=== PATIENT | female | born 1980 | race Two or more races ===

== ENCOUNTER 2019-05-23 14:45 | Emergency (ER) | payer MEDICAID ==
[~2019-05-23] VITALS: Ht 175.3 cm; Wt 99.8 kg
[2019-05-23] MEDS ORDERED: MORPHINE SULF INJ 2 MG/ML SYRINGE 1ML IV ONE ×2 (15:30→16:45)
[2019-05-23] MEDS ORDERED: ONDANSETRON HCL 4 MG/2 ML VIAL IV ONE (15:30)
[2019-05-23] MEDS ORDERED: MORPHINE SULFATE 4 MG/ML SYR/VIAL ONE (16:19)
[2019-05-23] MEDS ORDERED: NEOMYCIN-BACITRACIN-POLYM UNITDOSE PKG TOP OINT TOP ONE (16:27)
[2019-05-23] MEDS ORDERED: TETANUS-DIPTH-ACEL PERTUSSIS 0.5ML SYRG IM ONE (16:45)
[2019-05-23 17:24] VITALS: BP 118/57
[2019-05-23] MEDS ORDERED: IBUPROFEN 600 MG TAB PO ONE (17:30)
[2019-05-23] MEDS ORDERED: HYDROcodone-ACET 10/325MG TAB PO ONE (17:30)
== END 2019-05-23 17:44 | disposition home or self-care (01) ==
LOC: EDBD 14:45 → ER 14:55
DX: S82.842A Displaced bimalleolar fracture of left lower leg, initial encounter for closed fracture (principal); W01.0XXA Fall on same level from slipping, tripping and stumbling without subsequent striking against object, initial encounter; Y93.01 Activity, walking, marching and hiking; Y92.828 Other wilderness area as the place of occurrence of the external cause; Y99.8 Other external cause status
CPT/HCPCS: 29515; 73610; 90471; 90715; 96374; 96375; 99283; J2270; J2405

== ENCOUNTER 2019-05-28 17:30 | Emergency (ER) | payer MEDICAID ==
[~2019-05-28] VITALS: Ht 170.2 cm; Wt 104.3 kg
[2019-05-28] MEDS ORDERED: HYDROcodone-ACET 10/325MG TAB PO ONE (21:15)
[2019-05-28] MEDS ORDERED: KETOROLAC TROMETH 60MG/2ML VIAL IM ONE (21:15)
[2019-05-28] MEDS ORDERED: methylPREDNISolone SOD SUCC 125 MG/2 ML VL IM ONE (21:15)
[2019-05-28 21:34] VITALS: BP 117/60
== END 2019-05-28 22:17 | disposition home or self-care (01) ==
LOC: ER 17:30
DX: S82.302A Unspecified fracture of lower end of left tibia, initial encounter for closed fracture (principal); S82.62XA Displaced fracture of lateral malleolus of left fibula, initial encounter for closed fracture; S90.522A Blister (nonthermal), left ankle, initial encounter; Z90.49 Acquired absence of other specified parts of digestive tract; W18.39XA Other fall on same level, initial encounter; Y93.89 Activity, other specified; Y92.830 Public park as the place of occurrence of the external cause; Y99.8 Other external cause status
CPT/HCPCS: 29515; 96372; 99283; J1885; J2930

== ENCOUNTER 2019-06-22 07:29 | Emergency (ER) | payer MEDICAID ==
[~2019-06-22] VITALS: Ht 170.2 cm; Wt 104.3 kg
[2019-06-22 09:24] VITALS: BP 113/56
== END 2019-06-22 10:29 | disposition home or self-care (01) ==
LOC: ER 07:29
DX: M25.572 Pain in left ankle and joints of left foot (principal); Z90.49 Acquired absence of other specified parts of digestive tract; Z98.890 Other specified postprocedural states

== ENCOUNTER 2021-07-24 12:52 | Emergency (ER) | payer MEDICAID ==
[~2021-07-24] VITALS: Ht 170.2 cm; Wt 106.6 kg
[2021-07-24 17:32] VITALS: BP 148/85
== END 2021-07-24 17:47 | disposition home or self-care (01) ==
LOC: ER 12:52
DX: S93.402A Sprain of unspecified ligament of left ankle, initial encounter (principal); Z90.49 Acquired absence of other specified parts of digestive tract; X58.XXXA Exposure to other specified factors, initial encounter; Y93.01 Activity, walking, marching and hiking; Y92.89 Other specified places as the place of occurrence of the external cause; Y99.8 Other external cause status
CPT/HCPCS: 73610

== ENCOUNTER 2022-08-04 11:05 | Emergency (ER) | payer MEDICAID ==
[~2022-08-04] VITALS: Ht 175.3 cm; Wt 112.5 kg
[2022-08-04 11:40] VITALS: BP 139/92
[2022-08-04] MEDS ORDERED: PRED20TA2 PO (12:10)
[2022-08-04] MEDS ORDERED: ACET-1080 PO (12:10)
== END 2022-08-04 12:13 | disposition home or self-care (01) ==
LOC: ER 11:05
DX: M50.122 Cervical disc disorder at C5-C6 level with radiculopathy (principal); Z90.49 Acquired absence of other specified parts of digestive tract
CPT/HCPCS: 72040; 93005

== ENCOUNTER 2025-03-02 18:35 | Emergency (ER) | payer MEDICAID ==
[~2025-03-02] VITALS: Ht 170.2 cm; Wt 110.0 kg
[~2025-03-02 18:35] MED LIST: ACET-1080 PO; PRED20TA2 PO
[2025-03-02 18:39] VITALS: BP 125/89; RESP 20; TEMP 97.7; O2SAT 98
--- NOTE | 2025-03-02 18:41 | ECG ---
[facility] Test Date: 2025-03-02 Test Time: 18:40:39 Pat Name: JONAS KENDRICK Department: [facility] ED Patient ID: [facility]-[id number] Room: Gender: F [employer]: carine : 1980 Requested By: SHANTA CORNEJO Order Number: [id number] Reading MD: Frankie Fox Measurements Intervals [place] Rate: 70 P: 23 WI: 141 QRS: 28 QRSD: 101 T: 43 QT: 390 QTc: 421 Interpretive Statements Sinus rhythm Electronically Signed On 03-04-2025 17:50:52 PDT by Frankie Fox Please click the below link to view image of tracing.
[2025-03-02 19:02] LABS: Hematocrit 37.4 % (36.0-46.0); Hemoglobin 12.4 g/dL (12.2-16.2); Mean Corpuscular Hemoglobin 27.9 pg (28.0-32.0); Mean Corpuscular Volume 84.2 fL (80.0-100.0); Nucleated Red Blood Cells % 0.0 %
--- NOTE | 2025-03-02 19:19 | DVH ---
CHEST RADIOGRAPH Indication: chest pain Technique: Single frontal view of the chest was obtained COMPARISON: None FINDINGS: Lines and Tubes: None Lungs: Clear Pleura: No effusion. No pneumothorax. Cardiomediastinal contours: Unremarkable Bones: Unremarkable IMPRESSION: No acute disease.
[2025-03-02 19:22] LABS: Alanine Aminotransferase 26 U/L (7-40); Alkaline Phosphatase 57 U/L (46-116); Anion Gap 10 (5-15); BUN/Creatinine Ratio 18.1 (10.0-20.0); Blood Urea Nitrogen 13 mg/dL (9-23); Carbon Dioxide 29 mmol/L (20-31); Chloride 101 mmol/L (98-107); Potassium 3.9 mmol/L (3.5-5.1); Sodium 140 mmol/L (136-145); Total Protein 7.3 g/dL (5.7-8.2)
[2025-03-02 19:25] VITALS: PULSE 70
[2025-03-02 19:25] LABS: Albumin 4.8 g/dL (3.2-4.8); Bilirubin, Total 0.2 mg/dL (0.2-1.0); Calcium 10.6 mg/dL (8.7-10.4); Glucose 107 mg/dL (74-106)
--- NOTE | 2025-03-02 19:25 | ED.PDOC ---
History of Present Illness HPI Comments 44 y/o obese F presents with c/c nonradiating, sternal chest pain, with associated jaw pain, occasional shortness of breath at night, and nausea. Patient endorses on 5x day history of nausea and 2x day history of other aforementioned symptoms following their respective onsets. Pain is reported to have, suddenly, worsened, today, and is described to be heavy in quality and originates in her chest prior to, directly, radiating to her lower jaw. No endorsed recent life stressors, strenuous activities, lifestyle changes, or pertinent history endorsed, with exception of HLD and cholecystectomy. Denies any cough, congestion, fever, chills, vomiting, or further associated symptoms. States on consulting her PCP, recently, regarding symptoms and being dismissed of her concerns. Last stress test was stated to have been 2x years ago and benign then. Chief Complaint: Chest Pain Time Seen by MD: 18:40 Primary Care Provider: AREN Reviewed Notes: Nurses Notes, Medications, Allergies Allergies: Coded Allergies: NO KNOWN ALLERGIES (Unverified , 11/10/10) Home Meds Active Scripts Acetaminophen (Tylenol 8 Hour Arthritis) 650 Mg Tab, 650 MG PO TID, #30 TAB Prov:FADI ROY 08/04/22 Prednisone (Prednisone) 20 Mg Tab, 40 MG PO DAILY, #20 MG Prov:FADI ROY 08/04/22 Information Source: Patient Mode of Arrival: Ambulatory Severity: Moderate Timing: Days Duration: Since onset Prehospital treatment: None Past Medical History PAST MEDICAL HISTORY: High Lipids Surgical History: Cholecystectomy TECHNICAL SYSTEMS ARCHITECT History: No Pertinent TECHNICAL SYSTEMS ARCHITECT History Family History Family History: Reviewed,noncontributory to illness Social History Smoker: Non-Smoker Alcohol: Denies ETOH Use Drugs: Denies Drug Use Lives In: Home All Other Systems: Reviewed and Negative (Comprehensive systems review obtained and negative except for what is stated in the HPI.) Physical Exam General Appearance: No Apparent Distress, Obese HEENT: Normal ENT Inspection, Pharynx Normal, TMs Normal Neck: Full Range of Motion, Non-Tender, Normal, Normal Inspection Respiratory: Lungs Clear, No Accessory Muscle Use, No Respiratory Distress, Normal Breath Sounds Cardiovascular: No Edema, No JVD, No Murmur, No Gallop, Normal Peripheral Pulses, Regular Rate/Rhythm Breast Exam: Deferred Gastrointestinal: No Organomegaly, Non Tender, No Pulsatile Mass, Normal Bowel Sounds, Soft Genitalia: Deferred Pelvic: Deferred Rectal: Deferred Extremities: No calf tenderness, Normal capillary refill, Normal inspection, No rmal range of motion, Non-tender, No pedal edema Musculoskeletal : Location: Left Extremity Location: Chest (left peristernal chest wall ) Apperance: Normal, Tenderness (mild tenderness to left peristernal chest wall ) Neurologic: Alert, 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 Was a procedure done?: No EKG EKG : Pulse Rate (adult): 70 [place]: Normal Cardiac Rhythm: NSR Block: None Hypertrophy: None ST: Normal Differential Dx Considerations may include: RI, PE, ACS, URI, PNA, angina, anxiety, gastritis, among others X-Ray, Labs, Meds, VS Vital Signs Date Time Temp Pulse Resp B/P (MAP) Pulse Ox O2 Delivery O2 Flow Rate FiO2 03/02/25 19:25 70 03/02/25 18:40 70 03/02/25 18:39 97.7 70 20 125/89 (101) 98 97.7 Lab Test 03/02/25 19:46 03/02/25 18:46 Range/Units Troponin I High Sensitivity < 3 L < 3 L </=34 ng/L White Blood Count 11.4 H 4.4-10.8 10^3/uL Red Blood Count 4.44 4.0-5.20 10^6/uL Hemoglobin 12.4 12.2-16.2 g/dL Hematocrit 37.4 36.0-46.0 % Mean Corpuscular Volume 84.2 80.0-100.0 fL Mean Corpuscular Hemoglobin 27.9 L 28.0-32.0 pg Mean Corpuscular Hemoglobin Concent 33.2 32.0-36.0 g/dL Red Cell Distribution Width 15.0 H 11.8-14.3 % Platelet Count 244 140-450 10^3/uL Mean Platelet Volume 7.6 6.9-10.8 fL Neutrophils (%) (Auto) 65.9 37.0-80.0 % Lymphocytes (%) (Auto) 25.6 10.0-50.0 % Monocytes (%) (Auto) 7.8 0.0-12.0 % Eosinophils (%) (Auto) 0.4 0.0-7.0 % Basophils (%) (Auto) 0.3 0.0-2.0 % Neutrophils # (Auto) 7.5 1.6-8.6 10 ^3/uL Lymphocytes # (Auto) 2.9 0.4-5.4 10 ^3/uL Monocytes # (Auto) 0.9 0-1.3 10 ^3/uL Eosinophils # (Auto) 0 0-0.8 10 ^3/uL Basophils # (Auto) 0 0-0.2 10 ^3/uL Nucleated Red Blood Cells 0.0 % Sodium Level 140 136-145 mmol/L Potassium Level 3.9 3.5-5.1 mmol/L Chloride Level 101 98-107 mmol/L Carbon Dioxide Level 29 20-31 mmol/L Anion Gap 10 5-15 Blood Urea Nitrogen 13 9-23 mg/dL Creatinine 0.72 0.550-1.02 mg/dL Glomerular Filtration Rate Calc 106 >90 mL/min BUN/Creatinine Ratio 18.1 10.0-20.0 Serum Glucose 107 H 74-106 mg/dL Calcium Level 10.6 H 8.7-10.4 mg/dL Total Bilirubin 0.2 0.2-1.0 mg/dL Aspartate Amino Transferase (AST) 14 13-40 U/L Alanine Aminotransferase (ALT) 26 7-40 U/L Alkaline Phosphatase 57 46-116 U/L B-Type Natriuretic Peptide 28.77 0-100 pg/mL Total Protein 7.3 5.7-8.2 g/dL Albumin 4.8 3.2-4.8 g/dL [place] [id number] Ph: [phone] DIAGNOSTIC IMAGING Diagnostic Imaging Report : [id number] Signed PATIENT: JONAS KENDRICK ACCT: [id number] UNIT: [id number] : 1980 LOC: ER ROOM / BED: / AGE / SEX: 44 / F ADM STATUS: REG ER SERVICE [id number] ORDERING PHYSICIAN: SHANTA CORNEJO MD PROCEDURE(s): CXR1 - CHEST XRAY 1 VIEW REASON: chest pain ORDER NUMBER(s): [id number], ACCESSION NUMBER(s): [id number] CHEST RADIOGRAPH Indication: chest pain Technique: Single frontal view of the chest was obtained COMPARISON: None FINDINGS: Lines and Tubes: None Lungs: Clear Pleura: No effusion. No pneumothorax. Cardiomediastinal contours: Unremarkable Bones: Unremarkable IMPRESSION: No acute disease. ATED BY: ENRIKE WITT MD DICTATED DATE/TIME: 03/02/251916 SIGNED BY: ENRIKE WITT MD SIGNED DATE/TIME: 03/02/251916 CC: Time of 1ST Reevaluation: 19:10 Reevaluation 1ST: Unchanged Patient Education/Counseling: Diagnosis, Treatment, Need For Follow Up Family Education/Counseling: No Family Present SEPSIS Sepsis Screen Date sepsis recognized/suspect: Mar 02, 2025 Time Sepsis recognized/suspect: 1838 Recent Procedure: No On Antibiotic Therapy: No Respiratory Rate >20: No Heart Rate >90: No Temp<36 C (96.8 F) or >38.3 C: No SBP <90 or MAP <65 mmHG: No New Acute Mental Status Change: No Is the patient on CPAP, BIPAP,: No Physician Orders Chest Xray 1 View (03/02/25 18:53) Vital Signs Date Time Temp Pulse Resp B/P (MAP) Pulse Ox O2 Delivery O2 Flow Rate FiO2 03/02/25 19:25 70 03/02/25 18:40 70 03/02/25 18:39 97.7 70 20 125/89 (101) 98 97.7 Laboratory Tests Test 03/02/25 18:46 White Blood Count 11.4 10^3/uL (4.4-10.8) H Departure 1 Departure Time of Disposition: 20:30 Impression: Primary Impression: Atypical chest pain Disposition: 01 HOME / SELF CARE / HOMELESS Condition: Stable Discharged With: Self Critical Care Note Critical Care Time?: No Stability Stability form required: No Heart Score Heart Score: Heart Score Response (Comments) Value History Moderate Suspicious 1 EKG Normal 0 Age <45 0 Risk Factors 1 or 2 risk factors 1 Troponin Normal limit 0 Total 2 I personally scribed for SHANTA CORNEJO MD ([email or web address]) on 03/02/25 at 19:25. Electronically submitted by Abner Wagoner ([email or web address]). I personally scribed for SHANTA CORNEJO MD ([email or web address]) on 03/02/25 at 20:01. Electronically submitted by Abner Wagoner ([email or web address]). SHANTA CORNEJO MD Mar 02, 2025 19:25
== END 2025-03-02 20:17 | disposition left against medical advice (07) ==
LOC: ER 18:35
DX: R07.89 Other chest pain (principal); R68.84 Jaw pain; Z90.49 Acquired absence of other specified parts of digestive tract
CPT/HCPCS: 36415; 71045; 80053; 83880; 84484; 85025; 93005

== ENCOUNTER 2025-03-07 13:27 | Emergency (ER) | payer MEDICAID ==
[~2025-03-07] VITALS: Ht 170.2 cm; Wt 111.9 kg
--- NOTE | 2025-03-07 13:37 | ED.PDOC ---
HPI Comments 44-year-old female, with a PMHX of Hyperlipidemia and DM, presents to the ED with a chief complaint of substernal chest pain with associated fatigue and nausea as of X10 days ago. Patient states she was here Sunday, got a chest XRAY and blood work done, but left due to the wait. Patient's chest x-ray shows everything normal. Patient has no further complaints at this time and otherwise denies further associated symptoms of cough, emesis, back pain, dizziness, or migraine. Chief Complaint: Chest Pain Time Seen by MD: 13:33 Primary Care Provider: AREN Reviewed Notes: Medications, Allergies Allergies: Coded Allergies: NO KNOWN ALLERGIES (Unverified , 11/10/10) Home Meds Active Scripts Acetaminophen (Tylenol 8 Hour Arthritis) 650 Mg Tab, 650 MG PO TID, #30 TAB Prov:FADI ROY 08/04/22 Prednisone (Prednisone) 20 Mg Tab, 40 MG PO DAILY, #20 MG Prov:FADI ROY 08/04/22 Information Source: Patient Mode of Arrival: Ambulatory Severity: Moderate Duration: Since onset Location: Substernal Radiation: No Radiation Associated Signs and Symptoms: Other (Fatigue and nausea) Past Medical History PAST MEDICAL HISTORY: DM, High Lipids Surgical History: Cholecystectomy NODE JS DEVELOPER History: No Pertinent NODE JS DEVELOPER History Family History Family History: Reviewed,noncontributory to illness Social History Smoker: Non-Smoker Alcohol: Denies ETOH Use Drugs: Denies Drug Use Lives In: Home Constitutional: reports: fatigue; denies: chills, diaphoresis, fever, malaise, sweats, weakness, others EENTM: denies: blurred vision, double vision, ear bleeding, ear discharge, ear drainage, ear pain, ear ringing, eye pain, eye redness, hearing loss, mouth pain, mouth swelling, nasal discharge, nose bleeding, nose congestion, nose pain, photophobia, tearing, throat pain, throat swelling, voice changes, others Respiratory: denies: cough, hemoptysis, orthopnea, SOB at rest, shortness of breath, SOB with excertion, stridor, wheezing, others Cardiovascular: reports: chest pain; denies: dizzy spells, diaphoresis, Dyspnea on exertion, edema, irregular heart beat, left arm pain, lightheadedness, palpitations, PND, syncope, others Gastrointestinal: reports: nausea; denies: abdomen distended, abdominal pain, blood streaked bowels, constipated, diarrhea, dysphagia, difficulty swallowing, hematemesis, melena, poor appetite, poor fluid intake, rectal bleeding, rectal pain, vomiting, others Genitourinary: denies: abnormal vagina bleeding, burning, dyspareunia, dysuria, flank pain, frequency, hematuria, incontinence, pain, , vagina discharge, urgency, others Neurological: denies: dizziness, fainting, headache, left sided numbness, left sided weakness, numbness, paresthesia, pre-existing deficit, right sided numbness, right sided weakness, seizure, speech problems, tingling, tremors, weakness, others Musculoskeletal: denies: back pain, gout, joint pain, joint swelling, muscle pain, muscle stiffness, neck pain, others Integumetry: denies: bruises, change in color, change in hair/nails, dryness, laceration, lesions, lumps, rash, wounds, others Allergic/Immunocompromised: denies: Difficulty Healing, Frequent Infections, Hives, Itching, others Hematologic/Lymphatic: denies: anemia, blood clots, easy bleeding, easy bru ising, swollen glands, others Endocrine: denies: excessive hunger, excessive sweating, excessive thirst, e xcessive urination, flushing, intolerance to cold, intolerance to heat, unexplained weight gain, unexplained weight loss, others Psychiatric: denies: anxiety, bipolar disorder, depression, hopeless, panic disorder, schizophrenia, sleepless, suicidal, others All Other Systems: Reviewed and Negative Physical Exam General Appearance: Moderate Distress, Normal HEENT: Normal ENT Inspection, Pharynx Normal, TMs Normal Neck: Full Range of Motion, Non-Tender, Normal, Normal Inspection Respiratory: Chest Non-Tender, Lungs Clear, No Accessory Muscle Use, No Respiratory Distress, Normal Breath Sounds Cardiovascular: No Edema, No JVD, No Murmur, No Gallop, Normal Peripheral Pulses, Regular Rate/Rhythm Breast Exam: Deferred Gastrointestinal: No Organomegaly, Non Tender, No Pulsatile Mass, Normal Bowel Sounds, Soft Genitalia: Deferred Pelvic: Deferred Rectal: Deferred Extremities: No calf tenderness, Normal capillary refill, Normal inspection, Normal range of motion, Non-tender, No pedal edema Musculoskeletal : Apperance: Normal Neurologic: Alert, hedis review nurse II-XII nml as Tested, No Motor Deficits, Normal Affect, Normal Mood, No Sensory Deficits Cerebellar Function: Normal Reflexes: Normal Skin: Dry, Normal Color, Warm Peripheral Pulses: 3+ Radial (R), 3+ Radial (L) Lymphatic: No Adenopathy EKG EKG : Pulse Rate (adult): 77 [place]: Normal Cardiac Rhythm: NSR Block: None Hypertrophy: None ST: Normal Was a procedure done? Was a procedure done?: No CP Differential Dx Differential Diagnosis: A-fib, A-Flutter, Angina, Anxiety / Panic Attack, Atrial Dysrhythmia, Electrolyte Disorder, Hyperthyroidism Differential Diagnosis: HTN Essential X-Ray, Labs, Meds, VS Vital Signs Date Time Temp Pulse Resp B/P (MAP) Pulse Ox O2 Delivery O2 Flow Rate FiO2 03/07/25 16:24 97.7 60 16 135/80 (98) 99 97.7 03/07/25 14:00 98.4 74 18 132/90 (104) 100 98.4 03/07/25 14:00 74 18 100 Room Air 03/07/25 13:37 77 03/07/25 13:35 97.7 84 16 126/83 97 97.7 03/07/25 13:33 77 Lab Test 03/07/25 14:39 03/07/25 13:57 03/07/25 13:52 03/07/25 13:40 Range/Units Troponin I High Sensitivity < 3 L < 3 L </=34 ng/L D-Dimer, Quantitative 0.19 0.0-0.49 mg/L FEU Urine Color Colorless Yellow Urine Clarity Clear Clear Urine pH 6.5 5.0-9.0 Urine Specific [place] 1.003 1.001-1.035 Urine Protein Negative Negative Urine Ketones Negative Negative Urine Blood Negative Negative /uL Urine Nitrite Negative Negative Urine Bilirubin Negative Negative Urine Urobilinogen Normal Negative mg/dL Urine Leukocyte Esterase Negative Negative /uL Urine RBC 1 0 - 4 /hpf Urine Microscopic WBC 1 0-5 /HPF Urine Squamous Epithelial Cells Few <5 /hpf Urine Bacteria Few H None Seen /hpf Urine Glucose Normal Normal mg/dL POC Glucose 91 70-106 mg/dl Current Medications Medications (Trade) Dose Ordered Sig/Rupesh Route Start Time Stop Time Status Last Admin Aspirin 325 mg ONCE ONCE PO 03/07/25 13:45 03/07/25 13:46 DC 03/07/25 13:57 Patient alert. Complaining of chest pain. Vitals stable. Answering questions. Was given aspirin. Was seen here for the same symptom few days ago. Reviewed her previous visit. EKG reviewed does not show any acute changes. No leg swelling. Saturation pristine on room air. Heart rate within normal limits. D-dimer within normal limits. Cardiac marker within normal limits. Explained to the patient. Was told to follow up with her primary care physician. Was told to come back if there is any problem. Time of 1ST Reevaluation: 14:30 Reevaluation 1ST: Improved Patient Education/Counseling: Diagnosis, Treatment Family Education/Counseling: No Family Present SEPSIS Sepsis Screen Physician Orders Electrocardigram (03/07/25 13:36) Electrocardigram (03/07/25 14:36) Electrocardigram (03/07/25 16:36) Vital Signs Date Time Temp Pulse Resp B/P (MAP) Pulse Ox O2 Delivery O2 Flow Rate FiO2 03/07/25 16:24 97.7 60 16 135/80 (98) 99 97.7 03/07/25 14:00 98.4 74 18 132/90 (104) 100 98.4 03/07/25 14:00 74 18 100 Room Air 03/07/25 13:37 77 03/07/25 13:35 97.7 84 16 126/83 97 97.7 03/07/25 13:33 77 Medications Medications Dose Ordered Sig/Rupesh Route Start Time Stop Time Status Last Admin Dose Admin Aspirin 325 mg ONCE ONCE PO 03/07/25 13:45 03/07/25 13:46 DC 03/07/25 13:57 Departure 1 Departure Time of Disposition: 14:12 Impression: Primary Impression: Musculoskeletal chest pain Disposition: 01 HOME / SELF CARE / HOMELESS Condition: Good Discharged With: Self Critical Care Note Critical Care Time?: No Stability Stability form required: No Heart Score Heart Score: Heart Score Response (Comments) Value History Slightly Suspicious 0 EKG Normal 0 Age <45 0 Risk Factors 1 or 2 risk factors 1 Troponin Normal limit 0 Total 1 I personally scribed for ANDRÉS AMES MD ([email or web address]) on 03/07/25 at 13:37. Electronically submitted by Alyson Mullins ([email or web address]). I personally scribed for ANDRÉS AMES MD ([email or web address]) on 03/07/25 at 13:45. Electronically submitted by Alyson Mullins ([email or web address]). I personally scribed for ANDRÉS AMES MD ([email or web address]) on 03/07/25 at 13:48. Electronically submitted by Alyson Mullins ([email or web address]). ANDRÉS AMES MD Mar 07, 2025 13:37
[2025-03-07] MEDS: NITROGLYCERIN 0.4 MG SL TAB SL ONE (13:57)
[2025-03-07 14:26] LABS: Urine Protein, UAD Negative (Negative)
[2025-03-07 16:24] VITALS: BP 135/80; PULSE 60; RESP 16; TEMP 97.7; O2SAT 99
--- NOTE | 2025-03-09 08:09 | ECG ---
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
== END 2025-03-07 16:49 | disposition home or self-care (01) ==
LOC: ER 13:33
DX: R07.2 Precordial pain (principal); E11.9 Type 2 diabetes mellitus without complications; E78.5 Hyperlipidemia, unspecified; Z90.49 Acquired absence of other specified parts of digestive tract
CPT/HCPCS: 36415; 81001; 82947; 82962; 84484; 85379; 93005